=== PATIENT | female | born 1945 | race Caucasian/White ===

== ENCOUNTER 2024-01-23 19:49 | Inpatient (IN) | payer MEDICARE, OTHER, SELFPAY ==
[2024-01-23] VITALS (8 sets, daily range): BP systolic 99–177; BP diastolic 62–83; BMI 18.7
--- NOTE | 2024-01-23 17:26 | ED.GENMED ---
History of Present Illness
General
Chief Complaint: Dehydration Symptoms
Source: patient and spouse
Time Seen by Provider: 01/23/24 17:14
Travel History
Have you had any contact with someone who has COVID-19?: No
Do you have any symptoms of coronavirus? Fever > 100 degrees, chills, cough, shortness of breath, sore throat, loss of taste or smell, muscle aches, or headache?: No
History of Present Illness
History of Present Illness:
78-year-old female who presents with nausea. Patient states about a week ago she started with not feeling well. She states it really wiped her out. She had postnasal drip, sinus pressure, sore throat, cough. Those symptoms have persisted but
since starting antibiotics on Friday, she has been nauseous. She also her primary care doctor and had a negative flu and negative COVID test but was given azithromycin for possible sinusitis at the patient's request. The patient states that she
has not really been able to eat or drink much. She states her cough, postnasal drip and sore throat persist. No rash.
Past History
Past History
ED Past Medical History: Hypercholesterolemia, Hypothyroidism and Psychiatric
ED Past Surgical History: Cholecystectomy
Social History
Tobacco: Non-smoker
Drug: None
Personal:
Living: with family
Family History
Family History: CAD
Phy Exam
Physical Exam
Physical Exam:
CONSTITUTIONAL Patient alert and oriented to person, place and time. Well-appearing. Vital signs reviewed. Dry cough noted on exam
HEAD atraumatic, normocephalic.
EYES eyelids normal to inspection, Extraocular muscles intact, Conjunctiva normal, Sclera normal.
ENT mild pharyngeal redness throughout, no asymmetry, no exudates. Dry mucosa noted
NECK normal range of motion, Trachea midline, no jugular venous distention.
RESPIRATORY CHEST No respiratory distress noted, Chest expansion equal, diminished at bilateral bases
CARDIOVASCULAR regular and tachycardic.
ABDOMEN No distention.
BACK normal inspection, no obvious deformities
UPPER EXTREMITY range of motion normal, Motor strength normal, no cyanosis, no edema.
LOWER EXTREMITY range of motion normal, Motor strength normal, no cyanosis, no edema.
NEURO Speech normal, No focal motor deficits, Georgette coma scale 15, Memory normal, Cranial Nerves intact to screening exam.
SKIN skin warm, dry, and normal in color.
PSYCHIATRIC patient oriented to person place and time, Normal affect.
Course
Orders/Labs/Results
Orders:
Orders
01/23/24 17:24
Urinalysis Reflex To Culture Urgent
0.9% Sodium Chloride 1000 ml [Nss] 1,000 ml IV BOLUS
Ondansetron Injectable [Zofran] 4 mg IV NOW STA
01/23/24 17:25
CR Chest - 2 Views Urgent
Comment:
Reason For Exam: fever
01/23/24 17:28
COVID-19 Antigen Urgent
Source: Nasal Swab
INF RAPID [Influenza A+B Rapid Molecular] Stat
KEVIN Source: Nasal Swab
Specimen Description:
01/23/24 17:31
Complete Blood Count/With Diff Urgent
Comprehensive Metabolic Panel Urgent
01/23/24 17:32
Acetaminophen [Tylenol] 1,000 mg PO NOW STA
01/23/24 18:31
CefTRIAXone [Rocephin] 1,000 mg IV NOW STA
Doxycycline [Vibramycin] 100 mg PO NOW STA
01/23/24 18:37
Lactic Acid Q4H
Comment: CANCEL 2nd LACTIC ACID IF 1st LACTIC ACID IS LESS THAN 2
Blood Culture Q30M
KEVIN Source: Blood/Venous
Specimen Description:
01/23/24 18:42
Blood Culture Q30M
KEVIN Source: Blood/Venous
Specimen Description:
01/23/24 19:03
Doxycycline Hyclate [Vibramycin] 100 mg 0.9% Sodium Chloride 250 ml [Nss] 250 ml IV NOW
Abnormal Lab Results
01/23/24 01/23/24
17:31 18:37
WBC 11.0 H 10^3/uL
(4.8-10.8)
RBC 3.60 L 10^6/uL
(4.20-5.40)
Hgb 11.4 L g/dL
(12.0-16.0)
Hct 32.6 L %
(37.0-47.0)
MCH 31.7 H pg
(27.0-31.0)
MPV 11.6 H fL
(7.4-10.4)
Abs Immat Gran (auto) 0.1 H 10^3/uL
(0-0.05)
Absolute Neuts (auto) 9.7 H 10^3/uL
(1.4-6.5)
Absolute Lymphs (auto) 0.8 L 10^3/uL
(1.2-3.4)
Immature Gran % 0.7 H %
(0-0.5)
Neutrophils % 87.5 H %
(42.2-75.2)
Lymphocytes % 7.1 L %
(20.5-51.1)
Sodium 129 L mmol/L
(135-145)
Chloride 97 L mmol/L
(98-107)
Glucose 121 H mg/dl
(70-99)
Lactic Acid 0.6 L mmol/L
(0.7-2.0)
AST 55 H U/L
(14-36)
ALT 56 H U/L
(0-35)
Alkaline Phosphatase 136 H U/L
(38-126)
01/23/24 17:31
01/23/24 17:31
Vital Signs
Initial and Last Documented VS:
Initial Vital Signs
Temp Pulse Resp BP Pulse Ox
99.8 F 64 20 177/83 98
01/23/24 16:32 01/23/24 16:32 01/23/24 16:32 01/23/24 16:32 01/23/24 16:32
Last Documented Vital Signs
Temp Pulse Resp BP Pulse Ox
99.9 F 108 16 154/65 95
01/23/24 18:36 01/23/24 18:36 01/23/24 18:36 01/23/24 18:36 01/23/24 17:18
MDM/Problems Addressed
Differential Diagnosis Includes:
Pneumonia, viral syndrome, influenza, volume depletion electrolyte imbalance
MDM/Problems Addressed:
Fever, dehydration, acute bilateral pneumonia, hyponatremia
*Radiology
Radiology exam reviewed: preliminary read by ED provider (Pneumonia)
*Pulse Oximetry
Patient hypoxic: no
*Critical Care Note
Total Time (30-74mins, 75-104mins- exclusive of procedures): Not Applicable
Data Reviewed
Source: patient and spouse
Prescriptions/Medications Considered But Not Given:
Consider Zosyn and vancomycin but do not suspect patient is a Pseudomonas risk at this time. Given that she was already treated with azithromycin will convert to Rocephin and Doxy
Patient Management
Discussion with other providers: Hospitalist
Escalation/DeEscalation of care consider admission/obs:
Bilateral pneumonia. Clinically quite dry. IV fluids and admit
ED Attending Note
-
Portions of this chart may have been created with voice recognition software.� Occasional wrong word or��sound alike� substitutions may have occurred due to the inherent limitations of voice recognition software.
Discharge Plan
Departure
Patient Disposition: Admit
Date of Disposition: 01/23/24
Time of Disposition: 19:14
Admit to: Telemetry
Presentation/result/management discussed w/ accepting MD/DO: Hospitalist
Discharge Problem:
Bilateral pneumonia, Acute dehydration, mild hyponatremia
Prescriptions:
No Action
epinephrine [EpiPen] 0.3 MG/0.3/SYRINGE auto-injector
0.3 mg IM ONCE Qty: 2 0RF
Rx Instructions:
for severe allergic reaction
aspirin 81 MG tablet,delayed release (DR/EC)
81 mg PO HS
levothyroxine 50 MCG tablet
50 mcg PO DAILY
simvastatin 20 MG tablet
20 mg PO HS
qgbweovm-vvw-CQ-lycopen-lutein [Centrum Silver] 1 EACH tablet
1 ea PO HS
fish oil-dha-epa 1 EACH capsule
1 ea PO HS
calcium carbonate-vitamin D3 1 EACH tablet
1 ea PO HS
cyanocobalamin (vitamin B-12) 5,000 MCG tablet,disintegrating
5,000 mcg PO HS
vit C,J-Ai-mszft-lutein-zeaxan [PreserVision AREDS-2] 1 EACH capsule
1 ea PO HS
Bacillus coagulans [Probiotic (B. coagulans)] 1 EACH tablet,chewable
1 ea PO HS
Biotin
1 tab PO HS
Referrals:
UNKNOWN - PT DOES,NOT KNOW [Unknown Provider] -
Interventions
Interventions:
*Risk Screen - Suicide Last Done: 01/23/24 16:32
*General Assessment Last Done: 01/23/24 17:17
*Neglect/Abuse Screening Last Done: 01/23/24 16:32
*ED COVID-19 Vaccine History Last Done: 01/23/24 16:32
ED- Cardiac Assessment Last Done: 01/23/24 17:18
ED- Neurological Assessment Last Done: 01/23/24 17:18
ED- Pulmonary Assessment Last Done: 01/23/24 17:18
Discharge Date and Time
Print Language: CROATIAN
[2024-01-23] MEDS: TYLENOL 1000 MG PO (17:36)
[2024-01-23] MEDS: NSS 1000 IV ×2 (17:37→22:14)
[2024-01-23] MEDS: ZOFRAN 4 MG IV (17:37)
[2024-01-23 17:41] LABS: % Basophils 0.7 % (0-2); % Eosinophils 0.1 % (0-6); % Immature Granulocytes 0.7 % (0-0.5); % Lymphocytes 7.1 % (20.5-51.1); % Monocytes 3.9 % (1.7-9.3); % Neutrophils 87.5 % (42.2-75.2); Absolute Basophils 0.1 10^3/uL (0-0.2); Absolute Immature Granulocytes 0.1 10^3/uL (0-0.05); Absolute Lymphocytes 0.8 10^3/uL (1.2-3.4); Absolute Monocytes 0.4 10^3/uL (0.1-0.6); Absolute Neutrophils 9.7 10^3/uL (1.4-6.5); Hematocrit 32.6 % (37.0-47.0); Hemoglobin 11.4 g/dL (12.0-16.0); Mean Corpuscular Hgb 31.7 pg (27.0-31.0); Mean Corpuscular Volume 90.6 fL (81.0-99.0); Mean Platelet Volume 11.6 fL (7.4-10.4); Nucleated Red Blood Cells % 0 %; Platelet Count 218 10^3/uL (130-400)
[2024-01-23 17:58] LABS: COVID-19 Antigen Negative (Negative)
[2024-01-23 18:14] LABS: ALT (SGPT) 56 U/L (0-35); AST (SGOT) 55 U/L (14-36); Albumin 3.5 g/dl (3.5-5.0); Alkaline Phosphatase 136 U/L (38-126); Blood Urea Nitrogen 9 mg/dl (7-17); Calcium 8.7 mg/dl (8.4-10.2); Carbon Dioxide 27 mmol/L (22-30); Chloride 97 mmol/L (98-107); Estimated Creatinine Clearance 50 ml/min; Glucose 121 mg/dl (70-99); Potassium 3.8 mmol/L (3.5-5.1); Sodium 129 mmol/L (135-145); Total Bilirubin 0.6 mg/dl (0.2-1.3); Total Protein 6.3 g/dl (6.3-8.2); eGFR > 60.00
[2024-01-23] MEDS: ROCEPHIN 1000 MG IV (18:43)
[2024-01-23 19:01] LABS: Lactic Acid 0.6 mmol/L (0.7-2.0)
[2024-01-23] MEDS: VIBRAMYCIN 260 MG IV (19:33)
--- NOTE | 2024-01-23 19:43 | HPS.HSE ---
Family Physician
-
Family Physician: Michelle Dodson
Chief Complaint
-
cough
History of Present Illness
78-year-old female past medical history of hypertension, hypercholesteremia, hypothyroidism, presenting with productive cough, sore throat, sinus pressure, nasal discharge, shortness of breath and chest tightness for the past week. She started
azithromycin 2 days ago and since then she has had some sinus improvement and been having loose stools, abdominal pain and nausea. Denies vomiting. She did have fevers and chills.
Denies any history of lung problems or smoking history. Denies alcohol use.
Medical History
Past Medical History
Past Medical History: Reports Other (hypertension, hypercholesteremia, hypothyroidism)
Past Surgical History: Reports None
Social History
Tobacco: Non-smoker
Alcohol: None
Drug: None
Family History
Family History: Not pertinent
Allergies / Home Medications
Allergies reflects when Allergies were last updated in too.me.
Home Medications with original date entered in too.me
Allergy/Medication List:
Allergies
Allergy/AdvReac Type Severity Reaction Status Date / Time
Penicillins Allergy Rash Verified 01/23/24 16:31
Home Medications
Bacillus coagulans 250 million cell chewable tablet (Probiotic (B. coagulans)) 1 ea PO HS 08/22/17
calcium carbonate 500 mg-vitamin D3 3.125 mcg (125 unit) tablet 1 ea PO DAILY 08/22/17
fish oil-dha-epa 1,200 mg-144 mg-216 mg capsule 1 ea PO HS 08/22/17
levothyroxine 50 mcg tablet 50 mcg PO DAILY 08/22/17
rppavbzp-rgc-hbkod acid 0.4 mg-lycopene 300 mcg-lutein 250 mcg tablet (Centrum Silver) 1 ea PO HS 08/22/17
simvastatin 20 mg tablet 20 mg PO HS 08/22/17
vit C 250 mg-vit E 90 mg-zinc 40 mg-copper 1 jv-dylxfe-srpzkm capsule (PreserVision AREDS-2) 2 ea PO BID 08/22/17
biotin 1 mg tablet 1 mg PO DAILY 01/23/24
hydrochlorothiazide 12.5 mg tablet 12.5 mg PO DAILY 01/23/24
ibuprofen 200 mg tablet (Advil) 400 mg PO Q6HPRN PRN mild pain 01/23/24
Review of Systems
-
History Source: Patient
A 12 point ROS was completed and negative except as noted: Yes
Constitutional: Reports No Symptoms
EENT: Reports No Symptoms
Respiratory: Reports See HPI
Cardiac: Reports No Symptoms
Abdomen/GI: Reports See HPI
: Reports No Symptoms
Musculoskeletal: Reports No Symptoms
Skin: Reports No Symptoms
Neurological: Reports No Symptoms
Endocrine: Reports No Symptoms
Hematologic/Lymphatic: Reports No Symptoms
Psych: Reports No Symptoms
Physical Exam
Vital Signs
Vital Signs
Temp Pulse Resp BP Pulse Ox
99.9 F 108 16 154/65 95
01/23/24 18:36 01/23/24 18:36 01/23/24 18:36 01/23/24 18:36 01/23/24 17:18
Physical Exam
General: Well Developed, Well Nourished and No Apparent Distress
HEENT: NormoCephalic, Moist mucous membranes and Atraumatic
Respiratory: Rales
Cardiac: S1/S2 and Regular Rhythm; No Murmur or Rub
GI: Soft, Non Tender, Non Distended and Normal Bowel Sounds; No Organomegaly
Rectal: Deferred by Provider
Musculoskeletal: No Clubbing, No Cyanosis and No Edema
Skin: No Rash
Neuro: Nonfocal/grossly intact
Laboratory Results
-
01/23/24 17:31
01/23/24 17:31
Laboratory Results
Lactic Acid Cancelled 04/05/24 22:45
Total Bilirubin 0.6 mg/dl (0.2-1.3) 01/23/24 17:31
AST 55 U/L (14-36) H 01/23/24 17:31
ALT 56 U/L (0-35) H 01/23/24 17:31
Alkaline Phosphatase 136 U/L (38-126) H 01/23/24 17:31
Data Reviewed
-
Lab Data: Labs Reviewed by me
Old Records: Reviewed
Impression/Plan
-
IMPRESSION:
PLAN:
# Sepsis (fever, leukocytosis, tachycardia) secondary to community-acquired pneumonia
-Influenza and COVID-negative
-Chest x-ray shows moderate bilateral pneumonia with minimal bilateral pleural effusions
-IV fluids
-Check blood cultures
-Check sputum culture, strep antigen, Legionella antigen
-Ceftriaxone/doxycycline
# Loose stool secondary to antibiotic
-Continue to monitor and check stool studies/C. difficile if persistent
# Mild hyponatremia secondary to poor intake/GI losses
-Monitor with IV fluids
-Hold hydrochlorothiazide
# Transaminitis secondary to pneumonia
-Hold statin
Essential hypertension
-hold hydrochlorothiazide
Hypercholesterolemia
-hold statin
Hypothyroidism
-Continue levothyroxine
Full code
DVT prophylaxis- heparin
Regular diet
[2024-01-23] MEDS: THERAGRAN PO (22:13)
[2024-01-23] MEDS: OCUVITE SOFTGEL PO (22:13)
[2024-01-23] MEDS: HEPARIN SC (22:13)
[2024-01-24] MEDS: SYNTHROID 50 MCG PO (05:42)
[2024-01-24 07:55] VITALS: BP 165/84
[2024-01-24] MEDS: HEPARIN 5000 UNITS SC ×2 (08:15→20:40)
[2024-01-24] MEDS: OCUVITE SOFTGEL 2 CAP PO ×2 (08:17→20:39)
[2024-01-24 08:43] LABS: % Basophils 0.5 % (0-2); % Eosinophils 0.8 % (0-6); % Immature Granulocytes 0.9 % (0-0.5); % Lymphocytes 8.9 % (20.5-51.1); % Monocytes 5.3 % (1.7-9.3); % Neutrophils 83.6 % (42.2-75.2); Absolute Basophils 0.1 10^3/uL (0-0.2); Absolute Eosinophils 0.1 10^3/uL (0-0.7); Absolute Immature Granulocytes 0.1 10^3/uL (0-0.05); Absolute Monocytes 0.6 10^3/uL (0.1-0.6); Absolute Neutrophils 8.9 10^3/uL (1.4-6.5); Hematocrit 31.9 % (37.0-47.0); Hemoglobin 10.9 g/dL (12.0-16.0); Mean Corp Hgb Conc. 34.2 g/dL (33.0-37.0); Mean Corpuscular Volume 93.5 fL (81.0-99.0); Nucleated Red Blood Cells % 0 %; Platelet Count 236 10^3/uL (130-400); Red Blood Cell Count 3.41 10^6/uL (4.20-5.40); Red Cell Dist. Width 12.2 % (11.5-14.5); White Blood Cell Count 10.7 10^3/uL (4.8-10.8)
[2024-01-24 09:17] LABS: ALT (SGPT) 57 U/L (0-35); AST (SGOT) 64 U/L (14-36); Albumin 3.3 g/dl (3.5-5.0); Alkaline Phosphatase 161 U/L (38-126); Blood Urea Nitrogen 7 mg/dl (7-17); Calcium 8.8 mg/dl (8.4-10.2); Carbon Dioxide 27 mmol/L (22-30); Chloride 100 mmol/L (98-107); Estimated Creatinine Clearance 57 ml/min; Glucose 105 mg/dl (70-99); Potassium 3.9 mmol/L (3.5-5.1); Sodium 135 mmol/L (135-145); Total Bilirubin 0.6 mg/dl (0.2-1.3); Total Protein 6.1 g/dl (6.3-8.2); eGFR > 60.00
[2024-01-24] MEDS: ZOFRAN 4 MG IV ×3 (09:25→22:26)
[2024-01-24] MEDS: NSS 1000 IV (09:26)
--- NOTE | 2024-01-24 12:22 | W.PN.HOSP.TC ---
Today's Communication/Plan
-
stop IVF
change doxy to oral
follow cultures
d/c tomorrow? if still stable
Assessment / Plan
Assessment / Plan
pt is a 78 year old female
Sepsis (fever, leukocytosis, tachycardia) secondary to community-acquired pneumonia--Influenza and COVID-negative--Chest x-ray shows moderate bilateral pneumonia with minimal bilateral pleural effusions--follow cultures--cont rocephin/zmax
Loose stool secondary to antibiotic likely--Continue to monitor and check stool studies/C. difficile if persistent
Mild hyponatremia secondary to poor intake/GI losses--resolved--Hold hydrochlorothiazide
Transaminitis secondary to pneumonia vs zithromax--Hold statin--follow
Essential hypertension--hold hydrochlorothiazide
Hypercholesterolemia--hold statin
Hypothyroidism--Continue levothyroxine
Full code
DVT prophylaxis- heparin
Anticipated Discharge: Within 24 hours
Subjective/Interval History
-
Date of Service: January 24, 2024
pt without c/o
Objective Data
-
Labs:
Laboratory Results
01/24/24 01/24/24
07:51 07:52
WBC 10.7
Hgb 10.9 L
Hct 31.9 L
Plt Count 236
Sodium 135
Potassium 3.9
Chloride 100
Carbon Dioxide 27
BUN 7
Creatinine 0.7
Glucose 105 H
Calcium 8.8
Total Bilirubin 0.6
AST 64 H
ALT 57 H
Alkaline Phosphatase 161 H
Vital Signs:
max temp for 24 hours
01/23/24
17:18
Temp 102.5 F H
Vital Signs
Temp Pulse Resp BP Pulse Ox
98.2 F 110 16 165/84 95
01/24/24 07:55 01/24/24 07:55 01/24/24 07:55 01/24/24 07:55 01/24/24 10:39
I&O
01/23/24 01/24/24 01/25/24
06:59 06:59 06:59
Intake Total 1040 / 1040
Balance 1040 / 1040
Review of Systems
-
All other systems: Reviewed and negative
Physical Exam
-
General: Well Developed, Well Nourished and No Apparent Distress
HEENT: Normocephalic and Atraumatic
Respiratory: Wheezes and Rhonchi (right base)
Cardiac: Regular Rhythm and S1/S2; Negative Murmur
GI: Soft, Nontender, Nondistended and Normal Bowel Sounds
Musculoskeletal: No Clubbing, No Cyanosis and No Edema
Skin: Warm
Neuro: Awake
[2024-01-24 15:32] VITALS: BP 152/65
[2024-01-24] MEDS: ROCEPHIN 1000 MG IV (17:10)
[2024-01-24] MEDS: STERILE WATER FOR INJECTION 10 ML IV (17:10)
[2024-01-24] MEDS: VIBRAMYCIN 100 MG PO (20:39)
[2024-01-24] MEDS: THERAGRAN 1 TABLET PO (20:41)
[2024-01-24 23:30] VITALS: BP 170/78
[2024-01-24] MEDS: TYLENOL 650 MG PO (23:37)
[2024-01-25 00:52] VITALS: BP 155/71
[2024-01-25] MEDS: SYNTHROID 50 MCG PO (05:46)
[2024-01-25 07:00] VITALS: BP 162/83
[2024-01-25 07:44] LABS: Hematocrit 29.5 % (37.0-47.0); Mean Corp Hgb Conc. 33.9 g/dL (33.0-37.0); Mean Corpuscular Hgb 31.6 pg (27.0-31.0); Mean Corpuscular Volume 93.4 fL (81.0-99.0); Mean Platelet Volume 11.7 fL (7.4-10.4); Platelet Count 208 10^3/uL (130-400); Red Blood Cell Count 3.16 10^6/uL (4.20-5.40); Red Cell Dist. Width 11.9 % (11.5-14.5); White Blood Cell Count 5.8 10^3/uL (4.8-10.8)
[2024-01-25 08:14] LABS: ALT (SGPT) 62 U/L (0-35); AST (SGOT) 58 U/L (14-36); Albumin 2.9 g/dl (3.5-5.0); Alkaline Phosphatase 128 U/L (38-126); Blood Urea Nitrogen 4 mg/dl (7-17); Calcium 8.4 mg/dl (8.4-10.2); Chloride 105 mmol/L (98-107); Estimated Creatinine Clearance 66 ml/min; Glucose 102 mg/dl (70-99); Magnesium 2.3 mg/dl (1.6-2.3); Potassium 3.9 mmol/L (3.5-5.1); Sodium 135 mmol/L (135-145); Total Bilirubin 0.3 mg/dl (0.2-1.3); Total Protein 5.5 g/dl (6.3-8.2); eGFR > 60.00
[2024-01-25] MEDS: OCUVITE SOFTGEL 1 CAP PO (08:25)
[2024-01-25] MEDS: HEPARIN 5000 UNITS SC (08:26)
[2024-01-25] MEDS: VIBRAMYCIN 100 MG PO (08:26)
[2024-01-25] MEDS: ZOFRAN 4 MG IV (08:29)
[2024-01-25 08:32] LABS: Carbon Dioxide 26 mmol/L (22-30)
--- NOTE | 2024-01-25 11:02 | W.PN.HOSP.TC ---
Today's Communication/Plan
-
d/c
Assessment / Plan
Assessment / Plan
pt is a 78 year old female
Sepsis (fever, leukocytosis, tachycardia) secondary to community-acquired pneumonia--Influenza and COVID-negative--Chest x-ray shows moderate bilateral pneumonia with minimal bilateral pleural effusions--follow cultures--change rocephin/zmax to oral
abx at d/c
Loose stool secondary to antibiotic likely--Continue to monitor and check stool studies/C. difficile if persistent
Mild hyponatremia secondary to poor intake/GI losses--resolved--Hold hydrochlorothiazide
Transaminitis secondary to pneumonia vs zithromax--Hold statin--follow
Essential hypertension--hold hydrochlorothiazide
Hypercholesterolemia--hold statin
Hypothyroidism--Continue levothyroxine
Full code
DVT prophylaxis- heparin
Anticipated Discharge: Today
Subjective/Interval History
-
Date of Service: January 25, 2024
pt anxious to go home
Objective Data
-
Labs:
Laboratory Results
01/25/24
06:52
WBC 5.8
Hgb 10.0 L
Hct 29.5 L
Plt Count 208
Sodium 135
Potassium 3.9
Chloride 105
Carbon Dioxide 26
BUN 4 L
Creatinine 0.6
Glucose 102 H
Calcium 8.4
Total Bilirubin 0.3
AST 58 H
ALT 62 H
Alkaline Phosphatase 128 H
Vital Signs:
max temp for 24 hours
01/24/24
23:30
Temp 99.9 F
Vital Signs
Temp Pulse Resp BP Pulse Ox
98.7 F 95 18 162/83 94
01/25/24 07:00 01/25/24 07:00 01/25/24 07:00 01/25/24 07:00 01/25/24 09:00
I&O
01/24/24 01/25/24 01/26/24
06:59 06:59 06:59
Intake Total 1040 / 1040 900 / 900 100 / 100
Balance 1040 / 1040 900 / 900 100 / 100
Review of Systems
-
All other systems: Reviewed and negative
Physical Exam
-
General: Well Developed, Well Nourished and No Apparent Distress
HEENT: Normocephalic and Atraumatic
Respiratory: Clear to Auscultation; Negative Wheezes or Rhonchi
Cardiac: Regular Rhythm and S1/S2; Negative Murmur
GI: Soft, Nontender, Nondistended and Normal Bowel Sounds
Musculoskeletal: No Clubbing, No Cyanosis and No Edema
Neuro: Awake
Psych: Calm
--- NOTE | 2024-01-25 11:56 | CM ---
Spoke with attending who stated that patient is medically stable for discharge. Reviewed chart, met with patient to obtain information for assessment. Patient stated that she lives with her spouse in a two story single home with one step to enter.
She described herself as independent with her ADLs, personal care, dressing, bathing, toileting and ambulates without device.
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
She drives and can get to her appointments and can do her own shopping.
Patient denied any DME in her home.
She has a prescription plan and uses [facility] on [facility] for all of her medications.
Her PCP is Dr. Michelle Silva.
Patient reported that she feels she is at her baseline level of independence and does not feel that she will have any needs at time of discharge.
IMM reviewed and on chart.
Plan: Case management will continue to follow and assist with discharge planning. Home no needs.
[2024-01-25 12:16] VITALS: BP 160/78
--- NOTE | 2024-01-25 14:53 | W.DCSUMMARY ---
Discharge Summary
Discharge Data
Date of Admission: 01/23/24
Date of Discharge: 01/25/24
-
Pending Results: No
Hospital Course
Primary care physician : Michelle Dodson
Principal Discharge diagnosis : Sepsis (present on admission) due to community-acquired pneumonia
Chronic Discharge diagnosis : Essential hypertension, hyperlipidemia, hypothyroidism
Hospital Course : Patient is a 78-year-old female who presented with cough, sore throat, sinus pressure, nasal discharge, shortness of breath, and chest tightness for the week prior to admission. She stated that she started azithromycin 2 days
prior to admission but then started having some loose stools and abdominal pain. Patient also admitted to fevers and chills. Workup found her to have pneumonia. Patient was admitted.
Problem 1: Sepsis (present on admission) due to community-acquired pneumonia. Patient did not require any oxygen. Her white count was normal. Influenza and COVID were checked and were negative. Patient started Rocephin and Zithromax which was
converted to oral cephalexin at discharge. Patient complained of some mild loose stools which was likely due to her Zithromax. That resolved. She also had some mild hyponatremia which also resolved with IV fluids. Hydrochlorothiazide was held on
admission and restarted at discharge. Patient also had some mild transaminitis again likely secondary to pneumonia. Nevertheless, statin was held. She can discuss with her primary care physician restarting that. Cultures were negative. After
completion of her antibiotics, she should have repeat chest x-ray to ensure clearance.
Problem #2: All other medical issues. These include Essential hypertension, hyperlipidemia, hypothyroidism. These medical issues were stable during her hospitalization. Medications were continued as able.
Patient is stable for discharge home at this time. If there are any questions regarding this dictation or her hospital stay, please not hesitate to call. Our office number is [phone].
Important imaging findings :
CHEST X-RAY IMPRESSION:
1. MODERATE BILATERAL PNEUMONIA in the lateral basilar segment of the LEFT LOWER LOBE and in the RIGHT MIDDLE LOBE.
2. Minimal bilateral pleural effusions.
Discharge Plan
-
Patient Disposition: Home (Routine Discharge)
Discharge Diagnosis/Procedures: Sepsis due to community-acquired pneumonia, mild hyponatremia, mild transaminitis, essential hypertension, hyperlipidemia, hypothyroidism
Condition: Good
Diet: Low Cholesterol
Activity: As tolerated
Driving Restrictions: As prior to admission
Bathing Restrictions: None
Blood Work: CMP in 1 week--obtain script from PCP
Referrals:
Michelle Dodson MD [Family Provider] - in less than 1 week
Prescriptions:
New
cephalexin 500 mg capsule
500 mg PO BID Qty: 20 0RF
ondansetron 4 mg tablet,disintegrating
4 mg PO Q8H PRN (Reason: nausea/vomiting) Qty: 14 0RF
Continued
levothyroxine 50 MCG tablet
50 mcg PO DAILY@07
Centrum Silver 1 EACH tablet
1 ea PO HS
fish oil-dha-epa 1 EACH capsule
1 ea PO HS
calcium carbonate-vitamin D3 1 EACH tablet
1 ea PO DAILY
PreserVision AREDS-2 1 EACH capsule
2 ea PO BID
Probiotic (B. coagulans) 1 EACH tablet,chewable
1 ea PO HS
hydrochlorothiazide 12.5 mg Tablet
12.5 mg PO DAILY
ibuprofen [Advil] 200 mg Tablet
400 mg PO Q6HPRN PRN (Reason: mild pain)
biotin 1 mg Tablet
1 mg PO DAILY
Held
simvastatin 20 MG tablet
20 mg PO HS
Hold Instructions: do not take until your PCP tells you to resume
Discharge Orders:
Discharge Patient (As Directed); Ordered 01/25/24
Ordered By: Judy Goldsmith
Discharge Date and Time
Discharge Date/Time: 01/25/24 12:17
Print Language: SWEDISH
== END 2024-01-25 12:17 | disposition home or self-care (01) | DRG 871 ==
LOC: 3 WEST ACU 19:49
PROVIDERS: ADMITTING PHYSICIAN Hospitalist; ATTENDING PHYSICIAN Internal Medicine; EMERGENCY PHYSICIAN Emergency Medicine; FAMILY PHYSICIAN Internal Medicine
DX: A41.9 Sepsis, unspecified organism (principal); J18.9 Pneumonia, unspecified organism; E87.1 Hypo-osmolality and hyponatremia; E86.0 Dehydration; E03.9 Hypothyroidism, unspecified; R74.01 Elevation of levels of liver transaminase levels; I10 Essential (primary) hypertension; E78.00 Pure hypercholesterolemia, unspecified; Z79.82 Long term (current) use of aspirin; Z79.890 Hormone replacement therapy; Z88.0 Allergy status to penicillin; Z11.52 Encounter for screening for COVID-19
CPT/HCPCS: 71046; 80053; 83605; 83735; 85025; 85027; 87040; 87502; 87811; 96361; 96365; 96375; 99285

== ENCOUNTER → 2024-02-03 11:24 | Outpatient (REF) | payer MEDICARE, OTHER, SELFPAY ==
[2024-02-03 15:07] LABS: % Basophils 2.7 % (0-2); % Eosinophils 5.3 % (0-6); % Immature Granulocytes 0.2 % (0-0.5); % Lymphocytes 34.4 % (20.5-51.1); % Monocytes 10.2 % (1.7-9.3); % Neutrophils 47.2 % (42.2-75.2); Absolute Basophils 0.1 10^3/uL (0-0.2); Absolute Eosinophils 0.2 10^3/uL (0-0.7); Absolute Lymphocytes 1.4 10^3/uL (1.2-3.4); Absolute Monocytes 0.4 10^3/uL (0.1-0.6); Hematocrit 37.9 % (37.0-47.0); Hemoglobin 12.3 g/dL (12.0-16.0); Mean Corp Hgb Conc. 32.5 g/dL (33.0-37.0); Mean Corpuscular Hgb 31.3 pg (27.0-31.0); Mean Corpuscular Volume 96.4 fL (81.0-99.0); Mean Platelet Volume 11.1 fL (7.4-10.4); Nucleated Red Blood Cells % 0 %; Platelet Count 512 10^3/uL (130-400); Red Blood Cell Count 3.93 10^6/uL (4.20-5.40); Red Cell Dist. Width 12.7 % (11.5-14.5); White Blood Cell Count 4.1 10^3/uL (4.8-10.8)
[2024-02-03 15:32] LABS: ALT (SGPT) 32 U/L (0-35); AST (SGOT) 30 U/L (14-36); Albumin 4.1 g/dl (3.5-5.0); Alkaline Phosphatase 104 U/L (38-126); Blood Urea Nitrogen 18 mg/dl (7-17); Calcium 9.6 mg/dl (8.4-10.2); Carbon Dioxide 31 mmol/L (22-30); Chloride 101 mmol/L (98-107); Glucose 102 mg/dl (70-99); Potassium 4.6 mmol/L (3.5-5.1); Sodium 135 mmol/L (135-145); Total Bilirubin 0.4 mg/dl (0.2-1.3); Total Protein 7.4 g/dl (6.3-8.2); eGFR > 60.00
== END ==
LOC: HWLAB 11:24
PROVIDERS: ATTENDING PHYSICIAN Internal Medicine
DX: J18.9 Pneumonia, unspecified organism (principal); R74.01 Elevation of levels of liver transaminase levels
CPT/HCPCS: 36415; 80053; 85025

== ENCOUNTER → 2024-02-16 08:49 | Outpatient (REF) | payer MEDICARE, OTHER, SELFPAY | LOC: HWRAD 08:49 | PROVIDERS: ATTENDING PHYSICIAN Internal Medicine | DX: J18.9 Pneumonia, unspecified organism (principal) | CPT/HCPCS: 71046 ==

== ENCOUNTER → 2024-08-19 10:06 | Outpatient (REF) | payer MEDICARE, OTHER, SELFPAY | LOC: HWWDC 10:06 | PROVIDERS: ATTENDING PHYSICIAN Internal Medicine | DX: Z12.31 Encounter for screening mammogram for malignant neoplasm of breast (principal) | CPT/HCPCS: 77063; 77067 ==

== ENCOUNTER → 2024-11-22 14:05 | Outpatient (REF) | payer MEDICARE, OTHER, SELFPAY | LOC: HWRAD 14:05 | PROVIDERS: ATTENDING PHYSICIAN Internal Medicine | DX: M54.2 Cervicalgia (principal) | CPT/HCPCS: 72050 ==

== ENCOUNTER 2024-12-13 16:21 | Emergency (ER) | payer MEDICARE, OTHER, SELFPAY ==
[2024-12-13 16:29] VITALS: BP 201/86
[2024-12-13 16:53] LABS: % Basophils 1.2 % (0-2); % Eosinophils 7.6 % (0-6); % Immature Granulocytes 0.2 % (0-0.5); % Lymphocytes 40.9 % (20.5-51.1); % Monocytes 8.3 % (1.7-9.3); % Neutrophils 41.8 % (42.2-75.2); Absolute Basophils 0.1 10^3/uL (0-0.2); Absolute Eosinophils 0.4 10^3/uL (0-0.7); Absolute Monocytes 0.4 10^3/uL (0.1-0.6); Hematocrit 38.4 % (37.0-47.0); Hemoglobin 12.4 g/dL (12.0-16.0); Mean Corp Hgb Conc. 32.3 g/dL (33.0-37.0); Mean Corpuscular Hgb 31.3 pg (27.0-31.0); Mean Platelet Volume 11.7 fL (7.4-10.4); Nucleated Red Blood Cells % 0 %; Platelet Count 167 10^3/uL (130-400); Red Blood Cell Count 3.96 10^6/uL (4.20-5.40); Red Cell Dist. Width 12.2 % (11.5-14.5); White Blood Cell Count 4.8 10^3/uL (4.8-10.8)
[2024-12-13 17:06] LABS: ALT (SGPT) 23 U/L (0-35); AST (SGOT) 30 U/L (14-36); Albumin 4.1 g/dl (3.5-5.0); Alkaline Phosphatase 76 U/L (38-126); Blood Urea Nitrogen 18 mg/dl (7-17); Calcium 9.8 mg/dl (8.4-10.2); Carbon Dioxide 31 mmol/L (22-30); Glucose 89 mg/dl (70-99); Total Bilirubin 0.5 mg/dl (0.2-1.3); eGFR > 60.00
[2024-12-13 17:11] LABS: Troponin I < 0.012 ng/ml
[2024-12-13 17:15] LABS: Chloride 100 mmol/L (98-107); Potassium 4.2 mmol/L (3.5-5.1); Sodium 139 mmol/L (135-145)
[2024-12-13 18:32] VITALS: BP 210/76
[2024-12-13 19:00] VITALS: BP 192/78
[2024-12-13] MEDS: MAALOX 40 PO (19:11)
[2024-12-13] MEDS: PROTONIX IV 40 MG IV (19:11)
--- NOTE | 2024-12-13 19:26 | ED.GENMED ---
History of Present Illness
General
Chief Complaint: Chest Pain
Source: patient and spouse
Exam Limitations: none
Time Seen by Provider: 12/13/24 18:41
Nursing documentation reviewed up to this point in time: agreed with
History of Present Illness
History of Present Illness:
79-year-old female presents with pressure in her chest started around 130 after eating lunch she just gone on a long walk which she does every day had a liver worsening which which is not uncommon for her then developed some pressure in her chest
associated with a headache, no history of CAD she is status post gallbladder surgery, maybe had some chills, no fevers,
Past History
Past History
ED Past Medical History: Hypercholesterolemia, Hypothyroidism and Psychiatric
ED Past Surgical History: Cholecystectomy
Social History
Tobacco: Non-smoker
Alcohol: None
Drug: None
Personal:
Living: with family
Employment: Retired
Family History
Family History: CAD
Review of Systems
Review of Systems
All Other Systems: Not applicable
Constitutional: Denies fever or fatigue
EENT: Reports no symptoms
Respiratory: Reports no symptoms
Cardiac: Reports chest pain
ABD/GI: Reports nausea; Denies abdominal pain, vomiting or anorexia
: Reports no symptoms
Musculoskeletal: Reports no symptoms
Neurological: Reports headache
Endocrine: Reports no symptoms
Hematologic/Lymphatic: Reports no symptoms
Psychiatric: Reports no symptoms
Phy Exam
Physical Exam
Physical Exam:
Physical Exam
General: no apparent distress, not acutely ill
Neck: No jaundice
Heart: s1/s2 regular rate and rhythm, no murmur. equal radial pulses.
Lungs: no acute respiratory distress. clear bilaterally
Abdomen: Soft nontender
Neuro: alert and oriented. no focal neurological deficits
Skin: no rash
Psychiatric: well kept. interactive and cooperative
Extremities: no edema. no calf tenderness.
Scores
Heart Score for Chest Pain Patients
STEMI patient?: No
History: Slightly or Non-Suspicious
ECG: Normal
Age: >/= 65 years
Risk Factors: No Risk Factors
Troponin: </= Normal Limit
Heart Score for Chest Pain Patients: 2
Heart Score Risk: 2.5% MACE over next 6 weeks
Course
Orders/Labs/Results
Orders:
Orders
12/13/24 16:21
Electrocardiogram (*1) Urgent
Reason for Study: Chest Pain
EKG- Treatment ONCE
12/13/24 16:36
Complete Blood Count/With Diff Urgent
Comprehensive Metabolic Panel Urgent
Lipase Urgent
Troponin I Urgent
12/13/24 19:04
Electrocardiogram (*1) Urgent
Reason for Study: Chest Pain
CT Head W/o Iv Contrast Urgent
Comment:
Reason For Exam: headache
EKG- Treatment ONCE
Mag Hydrox/Al Hydrox/Simeth [Maalox] 30 ml Phenobarb/Hyoscy/Atropine/Scop [] 10 ml PO NOW
Pantoprazole [Protonix IV] 40 mg IV NOW STA
12/13/24 19:05
CR Chest - 2 Views Urgent
Comment:
Reason For Exam: cp
12/13/24 19:10
Mag Hydrox/Al Hydrox/Simeth [Maalox] 30 ml .ROUTE .STK-MED ONE
Phenobarb/Hyoscy/Atropine/Scop [] 10 ml .ROUTE .STK-MED ONE
12/13/24 19:19
Troponin I Urgent
Influenza A+B Rapid Molecular Urgent
KEVIN Source: Nasal Swab
Specimen Description:
12/13/24 19:34
Add On- LAB Urgent
Tests Added?: Lipase
12/13/24 20:53
Electrocardiogram (*1) Urgent
Reason for Study: Chest Pain
EKG- Treatment ONCE
Abnormal Lab Results
12/13/24
16:36
RBC 3.96 L 10^6/uL
(4.20-5.40)
MCH 31.3 H pg
(27.0-31.0)
MCHC 32.3 L g/dL
(33.0-37.0)
MPV 11.7 H fL
(7.4-10.4)
Neutrophils % 41.8 L %
(42.2-75.2)
Eosinophils % 7.6 H %
(0-6)
Carbon Dioxide 31 H mmol/L
(22-30)
BUN 18 H mg/dl
(7-17)
12/13/24 16:36
12/13/24 16:36
Vital Signs
Initial and Last Documented VS:
Initial Vital Signs
Temp Pulse Resp BP Pulse Ox
98.3 F 78 16 201/86 98
12/13/24 16:29 12/13/24 16:29 12/13/24 16:29 12/13/24 16:29 12/13/24 16:29
Last Documented Vital Signs
Temp Pulse Resp BP Pulse Ox
98.3 F 78 16 201/86 98
12/13/24 16:29 12/13/24 16:29 12/13/24 16:29 12/13/24 16:29 12/13/24 16:29
MDM/Problems Addressed
Differential Diagnosis Includes:
Gastritis pancreatitis ACS, common duct stone intracerebral hemorrhage viral syndrome influenza
MDM/Problems Addressed:
Chest pain headache
*Critical Care Note
Total Time (30-74mins, 75-104mins- exclusive of procedures): Not Applicable
Update Note
Update Note:
Update, second troponin noted chest x-ray report noted CT of the head report noted influenza swab noted
9 PM patient appears comfortable, 2 undetectable troponins, nonischemic EKG will repeat will discharge with a PPI PCP and cardiology follow-up ER for worsening symptoms
ED Attending Note
-
Portions of this chart may have been created with voice recognition software.� Occasional wrong word or��sound alike� substitutions may have occurred due to the inherent limitations of voice recognition software.
Discharge Plan
Departure
Patient Disposition: Home (Routine Discharge)
Date of Disposition: 12/13/24
Time of Disposition: 20:56
Patient with high blood pressure during this ER visit?: Yes
Condition: Good
Discharge Problem:
Chest pain
Instructions: Chest Pain CBC Follow Up
Prescriptions:
New
pantoprazole [Protonix] 40 mg tablet,delayed release (DR/EC)
40 mg PO DAILY Qty: 30 2RF
No Action
levothyroxine 50 MCG tablet
50 mcg PO DAILY@07
simvastatin 20 MG tablet
20 mg PO HS
Centrum Silver 1 EACH tablet
1 ea PO HS
fish oil-dha-epa 1 EACH capsule
1 ea PO HS
calcium carbonate-vitamin D3 1 EACH tablet
1 ea PO DAILY
PreserVision AREDS-2 1 EACH capsule
2 ea PO BID
Probiotic (B. coagulans) 1 EACH tablet,chewable
1 ea PO HS
hydrochlorothiazide 12.5 mg Tablet
12.5 mg PO DAILY
ibuprofen [Advil] 200 mg Tablet
400 mg PO Q6HPRN PRN (Reason: mild pain)
biotin 1 mg Tablet
1 mg PO DAILY
cephalexin 500 mg capsule
500 mg PO BID Qty: 20 0RF
ondansetron 4 mg tablet,disintegrating
4 mg PO Q8H PRN (Reason: nausea/vomiting) Qty: 14 0RF
Referrals:
Michelle Dodson MD [Family Provider] -
[place] MD [Active] - Next open appointment
Discharge Date and Time
Print Language: THAI
[2024-12-13 19:51] LABS: Troponin I < 0.012 ng/ml
[2024-12-13 21:05] LABS: Lipase 444 U/L (23-300)
[2024-12-13 21:25] VITALS: BP 173/85
== END 2024-12-13 21:36 | disposition home or self-care (01) ==
LOC: EMR 16:21
PROVIDERS: Emergency Medicine; EMERGENCY PHYSICIAN Emergency Medicine; FAMILY PHYSICIAN Internal Medicine
DX: R07.89 Other chest pain (principal); E78.00 Pure hypercholesterolemia, unspecified; E03.9 Hypothyroidism, unspecified; Z82.49 Family history of ischemic heart disease and other diseases of the circulatory system; Z90.49 Acquired absence of other specified parts of digestive tract
CPT/HCPCS: 99284; 96374; 70450; 71046; 80053; 83690; 84484; 85025; 87502; 93005

== ENCOUNTER → 2025-02-24 13:54 | Outpatient (REF) | payer MEDICARE, OTHER, SELFPAY | LOC: RAD 13:54 | PROVIDERS: ATTENDING PHYSICIAN Internal Medicine | DX: R74.8 Abnormal levels of other serum enzymes (principal); R10.84 Generalized abdominal pain | CPT/HCPCS: 74160; Q9967 ==

== ENCOUNTER → 2025-03-31 09:48 | Outpatient (REF) | payer MEDICARE, OTHER, SELFPAY ==
[2025-03-31 12:23] LABS: Lipase 327 U/L (23-300)
== END ==
LOC: HWLAB 09:48
PROVIDERS: ATTENDING PHYSICIAN Internal Medicine
DX: R74.8 Abnormal levels of other serum enzymes (principal)
CPT/HCPCS: 36415; 83690

== ENCOUNTER → 2025-05-26 18:41 | Outpatient (REF) | payer MEDICARE, OTHER, SELFPAY | LOC: MRI 3T 18:41 | PROVIDERS: ATTENDING PHYSICIAN Internal Medicine | DX: R10.13 Epigastric pain (principal); R74.8 Abnormal levels of other serum enzymes | CPT/HCPCS: 74183; A9575 ==

== ENCOUNTER 2025-08-18 06:22 | Day surgery (SDC) | payer MEDICARE, OTHER, SELFPAY | END 2025-08-18 11:34 | disposition home or self-care (01) | LOC: GI 06:22 | PROVIDERS: ATTENDING PHYSICIAN Internal Medicine | DX: R13.10 Dysphagia, unspecified (principal); K22.2 Esophageal obstruction; K44.9 Diaphragmatic hernia without obstruction or gangrene | CPT/HCPCS: 43249 ==